=== PATIENT | female | born 1965 | race Caucasian/White ===

== ENCOUNTER 2022-09-12 11:18 | Emergency (ER) | payer MEDICAID, SELFPAY ==
[2022-09-12 11:37] VITALS: BP 179/105; PULSE 67; RESP 18; TEMP 36.8; O2SAT 100; BMI 29.9
--- NOTE | 2022-09-12 11:51 | PC.NURSE ---
ER AT BEDSIDE
--- NOTE | 2022-09-12 11:56 | HMH.EDGENADL ---
Discharge Plan Disposition Patient Disposition: Home, Self-Care Condition: Good Referrals Follow up/Referrals: Brittany Alfred [Primary Care Provider] - See instructions Clinical Impressions Clinical Impression: Trigger finger, right middle finger Instructions Patient Instructions: DI for Trigger Finger Discharge ED Provider: Stew Curry General Adult HPI General Chief complaint: PAIN Stated complaint: RT hand stiffness w/pain Time Seen by Provider: 09/12/22 11:37 Mode of Arrival: Ambulatory Source of Information: Patient Limitations: No Limitations Description of Symptoms (Recalled from ER Triage Doc. 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 Reports this has been happening off and on with increasing frequency over the past year. Has not been seen by a PCP or other physician until now. Denies injury. Works as a hairdresser. Is right-hand dominant. Related Data Allergies Allergy/AdvReac Type Severity Reaction Status Date / Time Ofloxacin Allergy Unknown Uncoded 07/21/17 14:55 Opioid Allergy Unknown Uncoded 07/21/17 14:55 Penicillin Allergy Unknown Uncoded 07/21/17 14:[address] [facility] Disclaimer: The information contained in this section may have been updated after the patient was seen, as this information can be updated by other users. Social History Smoking Status: Never smoker alcohol intake: never current occupational status: employed Travel in the last 8 weeks: None ROS Obtained: Yes Systems reviewed as appropriate & no additional complaints except as documented Physical Exam General General appearance: alert Head Head exam: atraumatic Eye Eye exam: Present normal appearance Neck Neck exam: Present normal inspection Respiratory Respiratory exam: Present normal lung sounds bilaterally; Absent respiratory distress Cardiovascular Cardiovascular exam: Present regular rate and normal rhythm Abdominal Exam Abdominal exam: Present soft Extremities Exam Extremities exam: Present normal inspection Expanded Upper Extremity Exam Right: Hand exam: Present tenderness (Over flexor tendon) Comment: Trigger finger right middle finger Neurological Exam Neurological exam: Present alert and oriented X3 Psychiatric Psychiatric exam: Present normal affect Skin Skin exam: Present warm and dry Medical Decision Making Medical Records Medical records reviewed: Yes I reviewed the patient's medical records. Eloy Inquiry Pt receiving controlled substance: No Vital Signs: 09/12/22 11:37 Temperature 98.2 F Temperature Source Oral Pulse Rate [Left Radial] 67 Respiratory Rate 18 Blood Pressure [Right Arm] 179/105 H Blood Pressure Mean [Right Arm] 129 Blood Pressure Source [Right Arm] Automatic Cuff Blood Pressure Position [Right Arm] Sitting 02 Sat by Pulse Oximetry 100 Oxygen Delivery Method Room Air Medical Decision Narrative: Patient evaluated for trigger finger. She is in no acute distress. Able to manually resolve the trigger finger and patient now has use of her right middle finger. Encouraged to follow-up with orthopedics for further evaluation Critical Care Time Critical Care Time Critical Care Time: No Attestation: On 09/12/22, the high probability of a clinically significant, sudden or life threatening deterioration of the following system(s) required my full and direct attention, intervention and personal management. The time I documented below is in addition to time spent performing reported procedures but includes the following listed in this critical care notation.
--- NOTE | 2022-09-12 12:06 | HMH.EDGENADL ---
Discharge Plan Disposition Patient Disposition: Home, Self-Care Condition: Good Referrals Follow up/Referrals: Brittany Alfred [Primary Care Provider] - See instructions Clinical Impressions Clinical Impression: Trigger finger, right middle finger Instructions Patient Instructions: DI for Trigger Finger Discharge ED Provider: Stew Curry Adult HPI General Chief complaint: PAIN Stated complaint: RT hand stiffness w/pain Time Seen by Provider: 09/12/22 11:37 Mode of Arrival: Ambulatory Source of Information: Patient Limitations: No Limitations Description of Symptoms (Recalled from ER Triage Doc. 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 Social History (Updated 09/12/22 @ 12:03 by Stew Curry DO) Smoking Status: Never smoker alcohol intake: never current occupational status: employed Travel in the last 8 weeks: None ROS Obtained: Yes Systems reviewed as appropriate & no additional complaints except as documented Physical Exam General General appearance: alert Respiratory Respiratory exam: Present normal lung sounds bilaterally Cardiovascular Cardiovascular exam: Present regular rate and normal rhythm Neurological Exam Neurological exam: Present alert, oriented X3 and CN II-XII intact Medical Decision Making Eloy Inquiry Pt receiving controlled substance: No Vital Signs: 09/12/22 11:37 Temperature 98.2 F Temperature Source Oral Pulse Rate [Left Radial] 67 Respiratory Rate 18 Blood Pressure [Right Arm] 179/105 H Blood Pressure Mean [Right Arm] 129 Blood Pressure Source [Right Arm] Automatic Cuff Blood Pressure Position [Right Arm] Sitting 02 Sat by Pulse Oximetry 100 Oxygen Delivery Method Room Air Critical Care Time Critical Care Time Critical Care Time: No Attestation: On 09/12/22, the high probability of a clinically significant, sudden or life threatening deterioration of the following system(s) required my full and direct attention, intervention and personal management. The time I documented below is in addition to time spent performing reported procedures but includes the following listed in this critical care notation.
[2022-09-12 12:15] VITALS: BP 190/110; PULSE 68; RESP 18; TEMP 36.8; O2SAT 99
== END 2022-09-12 12:15 | disposition home or self-care (01) ==
PROVIDERS: Emergency Provider Family Medicine; PCP Family Medicine
DX: M65.331 Trigger finger, right middle finger (principal)
CPT/HCPCS: 99283

== ENCOUNTER → 2022-09-18 16:07 | Outpatient (CLI) | payer MEDICAID, SELFPAY ==
--- NOTE | 2022-09-18 16:12 | XR_ITS ---
FINAL REPORT CLINICAL HISTORY: hand pain FINDINGS: AP, lateral and oblique views of the right hand were obtained. There is no prior exam for comparison. There is no acute fracture or dislocation. There is mild osteopenia. There is multi joint degenerative disease, most pronounced of the 1st carpometacarpal joint. There is no evidence of erosion. The soft tissues are normal. IMPRESSION: Multi joint degenerative disease. Reviewed, Interpreted and Dictated by Sharlene Gilliland MD Transcribed by Paige Riggs Authenticated and [facility]
== END ==
PROVIDERS: PCP Family Medicine; Visit Provider Orthopaedic Surgery
DX: M65.331 Trigger finger, right middle finger (principal)
CPT/HCPCS: 73130

== ENCOUNTER 2022-11-11 14:00 | Outpatient (RCR) | payer MEDICAID, SELFPAY | END 2022-11-11 14:05 | disposition home or self-care (01) | LOC: OT 14:00 | PROVIDERS: PCP Family Medicine; Visit Provider Family Medicine | DX: M54.2 Cervicalgia (principal); M25.512 Pain in left shoulder | CPT/HCPCS: 97165 ==

== ENCOUNTER 2024-09-28 14:55 | Outpatient (CLI) | payer MEDICAID, SELFPAY ==
[2024-09-28 15:02] LABS: Basophils % 0.6 % (0.1-2.0); Eosinophils # 0.1 K/mm3 (0.0-0.4); Eosinophils % 1.1 % (0.1-12.0); Hematocrit 41.5 % (37.0-47.0); Hemoglobin 13.3 g/dL (12.2-16.2); Lymphocytes # 0.9 K/mm3 (0.7-4.5); Lymphocytes % 18.2 % (10-50); Mean Corpuscular Hemoglobin 29.8 pg (27.0-31.2); Mean Corpuscular Volume 92.8 fl (81-99); Mean Platelet Volume 10.7 fl (7.4-10.4); Monocytes # 0.3 K/mm3 (0.1-1.0); Monocytes % 5.3 % (1.7-9.3); Neutrophils # 3.5 K/mm3 (1.8-7.8); Neutrophils % 74.6 % (37.0-80.0); Platelet Count 233 K/mm3 (142-424); Red Blood Count 4.47 M/mm3 (4.20-5.40); Red Cell Distribution Width 13.1 % (11.5-17.5); White Blood Count 4.7 K/mm3 (4.8-10.8)
[2024-09-28 16:11] LABS: Alanine Aminotransferase 16 U/L (12-78); Albumin Level 4.7 g/dl (3.5-5.0); Albumin/Globulin Ratio 2.2 (1.1-1.8); Alkaline Phosphatase 66 U/L (38-126); Anion Gap 10.7 mEq/L (5-15); Aspartate Amino Transferase 25 U/L (14-36); Bilirubin,Total 0.5 mg/dl (0.2-1.3); Blood Urea Nitrogen 11 mg/dl (7-17); Calcium 9.3 mg/dl (8.4-10.2); Carbon Dioxide 27 mmol/L (22.0-30.0); Chloride 105 mmol/L (98-107); Chol/HDL Ratio 3.7 (1-3.5); Cholesterol 228 mg/dl (140-200); Estimated Glomerular Filt Rate 86 ml/min (>60); GFR (African American) 104 ML/MIN (>60); Globulin 2.1 g/dL (1.3-3.2); Glucose 101 mg/dl (74-100); HDL Cholesterol 61 mg/dl (40-60); Potassium 4.7 mmoL/L (3.5-5.1); Sodium 138 mmol/L (136-145); Total Protein,Serum 6.8 g/dl (6.3-8.2); Triglycerides 164 mg/dl (30-150); VLDL Cholesterol 33 mg/dL (0-40)
[2024-09-28 16:21] LABS: Direct LDL Cholesterol 122.62 mg/dL (100-129)
[2024-09-28 16:25] LABS: Hemoglobin A1C 5.3 % (4.0-6.0)
== END 2024-09-28 23:59 | disposition home or self-care (01) ==
LOC: LAB.DROPOF 14:55
PROVIDERS: PCP Internal Medicine; Visit Provider Internal Medicine
DX: Z13.1 Encounter for screening for diabetes mellitus (principal); Z13.220 Encounter for screening for lipoid disorders; Z00.00 Encounter for general adult medical examination without abnormal findings
CPT/HCPCS: 80053; 80061; 83036; 85025

== ENCOUNTER 2025-01-02 15:14 | Outpatient (CLI) | payer MEDICAID, SELFPAY ==
[2025-01-02 16:44] LABS: Coronavirus 19, PCR Not Detected (NotDetected); Human Rhinovirus Not Detected (NotDetected); Influenza A, PCR Not Detected (NotDetected); Influenza B, PCR Not Detected (NotDetected); Respiratory Syncytial Virus Not Detected (NotDetected)
== END 2025-01-02 23:59 | disposition home or self-care (01) ==
LOC: LAB.DROPOF 01-03 11:59
PROVIDERS: PCP Nurse Practitioner Family; Visit Provider Nurse Practitioner Family
DX: B34.9 Viral infection, unspecified (principal); R51.9 Headache, unspecified; R06.2 Wheezing
CPT/HCPCS: 87631

== ENCOUNTER 2025-02-08 18:04 | Outpatient (CLI) | payer MEDICAID, SELFPAY ==
[2025-02-08 17:58] LABS: Albumin Level 4.6 g/dl (3.5-5.0); Chloride 101 mmol/L (98-107); Potassium 4.0 mmoL/L (3.5-5.1); Sodium 138 mmol/L (136-145)
[2025-02-08 18:01] LABS: Alanine Aminotransferase 14 U/L (12-78); Albumin/Globulin Ratio 1.8 (1.1-1.8); Alkaline Phosphatase 64 U/L (38-126); Anion Gap 12.0 mEq/L (5-15); Aspartate Amino Transferase 24 U/L (14-36); Bilirubin,Total 0.3 mg/dl (0.2-1.3); Blood Urea Nitrogen 9 mg/dl (7-17); Calcium 8.9 mg/dl (8.4-10.2); Carbon Dioxide 29 mmol/L (22.0-30.0); Creatinine,Serum 0.70 mg/dl (0.52-1.04); Estimated Glomerular Filt Rate 86 ml/min (>60); GFR (African American) 104 ML/MIN (>60); Globulin 2.6 g/dL (1.3-3.2); Glucose 84 mg/dl (74-100); Total Protein,Serum 7.2 g/dl (6.3-8.2)
[2025-02-08 18:29] LABS: Thyroid Stimulating Hormone 1.09 uIU/mL (0.465-4.68)
[2025-02-08 19:26] LABS: Free T4 (Free Thyroxine) 0.88 ng/dl (0.78-2.19)
[2025-02-08 22:14] LABS: Hemoglobin A1C 6.4 % (4.0-6.0)
[2025-02-10 11:22] LABS: Triiodothyronine (T3) Free 3.0 pg/mL (2.0-4.4)
== END 2025-02-08 23:59 | disposition home or self-care (01) ==
LOC: LAB.DROPOF 02-09 13:37
PROVIDERS: PCP Nurse Practitioner Family; Visit Provider Nurse Practitioner Family
DX: R63.5 Abnormal weight gain (principal); R30.0 Dysuria
CPT/HCPCS: 80053; 83036; 84439; 84443; 84481; 87086